=== PATIENT | female | born 1930 | race Caucasian/White ===

== ENCOUNTER 2017-04-15 08:12 | Inpatient (IN) | payer MEDICARE, MEDICAID ==
[~2017-04-15] VITALS: Ht 160 cm; Wt 61.0 kg
[~2017-04-15 08:12] MED LIST: AMLODIPINE BESYL5 MG PO; AMLODIPINE10 MG PO; AMLODIPINE5 MG PO; BABY ASPIRIN81 MG OR; CIPROFLOXACN500 MG PO; FLONASE NASAL50 MCG; HYDROCHLOROT12.5 M1 PO; LOTREL 5/101 CAP OR; PYRIDIUM200 MG PO
[2017-04-15 09:04] LABS: HEMATOCRIT 38.1 % (37.0-47.0); HEMOGLOBIN 12.8 g/dl (12.0-16.0); IMMATURE GRANULOCYTES 0.1 % (0.0-1.0); MEAN CELL VOLUME 95.3 fL CALC (80.0-100.0); MEAN CORPUSCULAR HGB CONC 33.6 g/L CALC (32.0-36.0); NEUT# 4.83 thou/uL (2.00-7.15); RED CELL DISTRI WIDTH 12.7 % (11.5-15.5)
[2017-04-15 09:08] LABS: ALBUMIN 4.3 g/dL (3.2-5.0); ALKALINE PHOSPHATASE 113 u/l (38-126); ANION GAP 14 (6-22 (CALC)); BILIRUBIN, TOTAL 0.5 mg/dL (0.0-1.4); BUN 15 mg/dL (8-23); BUN/CREATININE RATIO 24 (12-20 (CALC)); CALCIUM 9.1 mg/dL (8.4-10.2); CARBON DIOXIDE 25 mmol/l (22-30); CHLORIDE 106 mmol/l (95-108); CREATININE 0.6 mg/dL (0.5-1.0); GFR > 60 ML/MIN (>=60 (CALC)); GFR FOR AFR.AMER. > 60 ML/MIN (>=60 (CALC)); GLUCOSE 96 mg/dL (82-115); POTASSIUM 3.7 mmol/l (3.5-5.1); SGOT/AST 57 u/l (9-36); SGPT/ALT 41 u/l (11-66); SODIUM 141 mmol/l (137-146); TOTAL PROTEIN 7.6 g/dL (6.3-8.2)
[2017-04-15 09:14] LABS: AMYLASE 1585 u/l (30-110)
[2017-04-15 09:20] LABS: MYOGLOBIN 39 ng/mL (0 - 62)
[2017-04-15 09:32] LABS: LIPASE 28803 u/l (23-300)
[2017-04-15 10:23] LABS: URINE BILIRUBIN - DIPSTICK NEGATIVE (NEGATIVE); URINE BLOOD DIPSTICK TRACE-INTACT (NEGATIVE); URINE CLARITY CLEAR; URINE COLOR YELLOW; URINE GLUCOSE - DIPSTICK NEGATIVE (NEGATIVE); URINE KETONE NEGATIVE (NEGATIVE); URINE LEUK ESTERASE NEGATIVE (NEGATIVE); URINE NITRITE - DIPSTICK NEGATIVE (Negative); URINE PROTEIN - DIPSTICK NEGATIVE (NEG-TRACE); URINE SPECIFIC GRAVITY <=1.005; URINE UROBILINOGEN - DIPSTICK 0.2 E.U./dL (0.2)
[2017-04-15 10:40] LABS: CHOLESTEROL HDL RATIO 3.7 (<4.4 (CALC))
[2017-04-15 13:23] VITALS: BP 135/68
[2017-04-15 19:23] VITALS: BP 141/64
[2017-04-16 00:13] VITALS: BP 123/73
[2017-04-16 04:40] VITALS: BP 114/59
[2017-04-16 04:47] LABS: HEMATOCRIT 34.5 % (37.0-47.0); HEMOGLOBIN 11.5 g/dl (12.0-16.0); IMMATURE GRANULOCYTES 0.1 % (0.0-1.0); MEAN CELL VOLUME 94.5 fL CALC (80.0-100.0); MEAN CORPUSCULAR HGB 31.5 pG CALC (26.0-32.0); MEAN CORPUSCULAR HGB CONC 33.3 g/L CALC (32.0-36.0); NEUT# 4.48 thou/uL (2.00-7.15); RED BLOOD COUNT 3.65 mill/uL (4.20-5.60); RED CELL DISTRI WIDTH 12.6 % (11.5-15.5)
[2017-04-16 05:23] LABS: AMYLASE 375 u/l (30-110); ANION GAP 12 (6-22 (CALC)); BUN 9 mg/dL (8-23); BUN/CREATININE RATIO 15 (12-20 (CALC)); CALCIUM 8.9 mg/dL (8.4-10.2); CARBON DIOXIDE 26 mmol/l (22-30); CHLORIDE 106 mmol/l (95-108); CREATININE 0.6 mg/dL (0.5-1.0); GFR > 60 ML/MIN (>=60 (CALC)); GFR FOR AFR.AMER. > 60 ML/MIN (>=60 (CALC)); GLUCOSE 105 mg/dL (82-115); POTASSIUM 3.8 mmol/l (3.5-5.1); SODIUM 139 mmol/l (137-146)
[2017-04-16 05:29] LABS: LIPASE 1700 u/l (23-300)
[2017-04-16 08:46] VITALS: BP 142/53
[2017-04-16 08:58] VITALS: BP 142/53
== END 2017-04-16 12:22 | disposition home or self-care (01) | DRG 440 ==
LOC: ED 08:12 → ED-I 08:36 → ED 08:36 → ED-I 10:10 → ED 12:11 → MS2 12:12
PROVIDERS: Emergency Medicine; ADMIT Internal Medicine; ATTEND Internal Medicine
DX: K85.90 Acute pancreatitis without necrosis or infection, unspecified (principal); I10 Essential (primary) hypertension; E78.5 Hyperlipidemia, unspecified; K21.9 Gastro-esophageal reflux disease without esophagitis; K59.09 Other constipation; R68.81 Early satiety; K82.8 Other specified diseases of gallbladder; Z87.440 Personal history of urinary (tract) infections; Z66 Do not resuscitate
CPT/HCPCS: J2060

== ENCOUNTER 2017-06-01 11:10 | Emergency (ER) | payer MEDICARE, MEDICAID ==
[~2017-06-01] VITALS: Ht 160 cm; Wt 70.0 kg
[2017-06-01 11:44] LABS: IMMATURE GRANULOCYTES 0.4 % (0.0-1.0); MEAN CELL VOLUME 92.8 fL CALC (80.0-100.0); MEAN CORPUSCULAR HGB 31.8 pG CALC (26.0-32.0); MEAN CORPUSCULAR HGB CONC 34.3 g/L CALC (32.0-36.0); NEUT# 2.97 thou/uL (2.00-7.15); RED BLOOD COUNT 3.77 mill/uL (4.20-5.60); RED CELL DISTRI WIDTH 17.9 % (11.5-15.5)
[2017-06-01 12:10] LABS: ALBUMIN 4.2 g/dL (3.2-5.0); ALKALINE PHOSPHATASE 976 u/l (38-126); AMYLASE 54 u/l (30-110); ANION GAP 19 (6-22 (CALC)); BUN 12 mg/dL (8-23); BUN/CREATININE RATIO 21 (12-20 (CALC)); CALCIUM 9.6 mg/dL (8.4-10.2); CARBON DIOXIDE 23 mmol/l (22-30); CHLORIDE 102 mmol/l (95-108); CREATININE 0.6 mg/dL (0.5-1.0); GFR > 60 ML/MIN (>=60 (CALC)); GFR FOR AFR.AMER. > 60 ML/MIN (>=60 (CALC)); GLUCOSE 126 mg/dL (82-115); LIPASE 294 u/l (23-300); POTASSIUM 3.7 mmol/l (3.5-5.1); SGOT/AST 189 u/l (9-36); SGPT/ALT 399 u/l (11-66); SODIUM 141 mmol/l (137-146); TOTAL PROTEIN 7.8 g/dL (6.3-8.2)
[2017-06-01 12:11] LABS: DIRECT BILIRUBIN 3.6 mg/dl (0.0-0.3)
[2017-06-01 12:22] LABS: URINE BLOOD DIPSTICK TRACE-INTACT (NEGATIVE); URINE CLARITY CLEAR; URINE COLOR YELLOW; URINE GLUCOSE - DIPSTICK NEGATIVE (NEGATIVE); URINE KETONE NEGATIVE (NEGATIVE); URINE LEUK ESTERASE NEGATIVE (NEGATIVE); URINE NITRITE - DIPSTICK NEGATIVE (Negative); URINE PH 5.5 (4.5-8.0); URINE PROTEIN - DIPSTICK NEGATIVE (NEG-TRACE); URINE SPECIFIC GRAVITY <=1.005; URINE UROBILINOGEN - DIPSTICK 0.2 E.U./dL (0.2)
[2017-06-01 12:23] LABS: URINE BILIRUBIN - DIPSTICK SMALL (NEGATIVE)
[2017-06-01] MEDS ORDERED: CIPROFLOXACN750 MG PO (13:46)
[2017-06-01 15:05] VITALS: BP 178/79
== END 2017-06-01 14:56 | disposition short-term general hospital (02) ==
LOC: ED 11:10
PROVIDERS: Emergency Medicine
DX: K83.8 Other specified diseases of biliary tract (principal); R53.1 Weakness; I10 Essential (primary) hypertension; E78.5 Hyperlipidemia, unspecified
CPT/HCPCS: Q9967

== ENCOUNTER 2017-06-08 01:01 | Emergency (ER) | payer MEDICARE, MEDICAID ==
[~2017-06-08] VITALS: Ht 160 cm; Wt 50.0 kg
[~2017-06-08 01:01] MED LIST changes: +CIPROFLOXACN750 MG PO
[2017-06-08] MEDS ORDERED: BENADRYL 50MG C50 MG PO (02:21)
[2017-06-08 07:30] VITALS: BP 118/54
== END 2017-06-08 07:40 | disposition home or self-care (01) ==
LOC: ED 01:01
DX: L29.9 Pruritus, unspecified (principal); K83.1 Obstruction of bile duct; I10 Essential (primary) hypertension; E78.5 Hyperlipidemia, unspecified

== ENCOUNTER 2017-06-16 13:59 | Emergency (ER) | payer MEDICARE, MEDICAID ==
[~2017-06-16] VITALS: Ht 160 cm; Wt 84.0 kg
[~2017-06-16 13:59] MED LIST changes: +BENADRYL 50MG C50 MG PO
[2017-06-16] MEDS ORDERED: VISTARIL 50MG C50 MG PO (14:51)
[2017-06-16 15:15] VITALS: BP 145/63
[2017-06-16] MEDS ORDERED: DILAUDID2 MG PO (22:10)
[2017-06-16] MEDS ORDERED: ZOFRAN ODT4 MG PO (22:10)
== END 2017-06-16 15:29 | disposition home or self-care (01) ==
LOC: ED 13:59
DX: R68.2 Dry mouth, unspecified (principal); T45.0X5A Adverse effect of antiallergic and antiemetic drugs, initial encounter; Y92.009 Unspecified place in unspecified non-institutional (private) residence as the place of occurrence of the external cause; R11.2 Nausea with vomiting, unspecified; R10.10 Upper abdominal pain, unspecified; I10 Essential (primary) hypertension

== ENCOUNTER 2017-06-16 18:56 | Emergency (ER) | payer MEDICARE, MEDICAID ==
[~2017-06-16] VITALS: Ht 160 cm; Wt 40.0 kg
[~2017-06-16 18:56] MED LIST changes: +VISTARIL 50MG C50 MG PO
[2017-06-16 19:42] LABS: HEMATOCRIT 32.5 % (37.0-47.0); IMMATURE GRANULOCYTES 0.3 % (0.0-1.0); MEAN CELL VOLUME 96.4 fL CALC (80.0-100.0); MEAN CORPUSCULAR HGB 32.6 pG CALC (26.0-32.0); MEAN CORPUSCULAR HGB CONC 33.8 g/L CALC (32.0-36.0); NEUT# 11.16 thou/uL (2.00-7.15); RED BLOOD COUNT 3.37 mill/uL (4.20-5.60); RED CELL DISTRI WIDTH 14.6 % (11.5-15.5)
[2017-06-16 19:53] LABS: ALBUMIN 3.6 g/dL (3.2-5.0); ALKALINE PHOSPHATASE 848 u/l (38-126); ANION GAP 15 (6-22 (CALC)); BILIRUBIN, TOTAL 4.9 mg/dL (0.0-1.4); BUN 13 mg/dL (8-23); BUN/CREATININE RATIO 24 (12-20 (CALC)); CALCIUM 9.2 mg/dL (8.4-10.2); CARBON DIOXIDE 23 mmol/l (22-30); CHLORIDE 103 mmol/l (95-108); CREATININE 0.6 mg/dL (0.5-1.0); GFR > 60 ML/MIN (>=60 (CALC)); GFR FOR AFR.AMER. > 60 ML/MIN (>=60 (CALC)); GLUCOSE 111 mg/dL (82-115); POTASSIUM 3.7 mmol/l (3.5-5.1); SGOT/AST 463 u/l (9-36); SGPT/ALT 326 u/l (11-66); SODIUM 137 mmol/l (137-146); TOTAL PROTEIN 6.4 g/dL (6.3-8.2)
[2017-06-16 22:00] VITALS: BP 130/41
[2017-06-16] MEDS ORDERED: ZOFRAN ODT4 MG PO (22:10)
[2017-06-16] MEDS ORDERED: DILAUDID2 MG PO (22:10)
== END 2017-06-16 22:45 | disposition home or self-care (01) ==
LOC: ED 18:56
PROVIDERS: Emergency Medicine
DX: R10.13 Epigastric pain (principal); R11.2 Nausea with vomiting, unspecified; I10 Essential (primary) hypertension

== ENCOUNTER 2018-04-07 06:36 | Emergency (ER) | payer MEDICARE, MEDICAID ==
[~2018-04-07] VITALS: Ht 160 cm; Wt 45.0 kg
[~2018-04-07 06:36] MED LIST changes: +DILAUDID2 MG PO; +ZOFRAN ODT4 MG PO
[2018-04-07] MEDS ORDERED: ASPIRIN81 MG PO (07:01)
[2018-04-07] MEDS ORDERED: TYLENOL500 MG PO (07:03)
[2018-04-07 08:39] VITALS: BP 132/54
== END 2018-04-07 08:39 | disposition hospice, inpatient (51) ==
LOC: ED 06:36
DX: C34.90 Malignant neoplasm of unspecified part of unspecified bronchus or lung (principal); G89.3 Neoplasm related pain (acute) (chronic); C79.9 Secondary malignant neoplasm of unspecified site